=== PATIENT | male | born 1975 | race Hispanic/Latino ===

== ENCOUNTER 2016-10-29 06:03 | Emergency (ER) | payer OTHER ==
[~2016-10-29] VITALS: Ht 142.2 cm; Wt 67.4 kg
--- NOTE | 2016-10-29 06:40 | NUR ---
Pt gives verbal permission to call his boss Selina at [phone] to give information or to get a ride a home.
[2016-10-29 06:50] LABS: MEAN CORPUSCULAR HEMOGLOBIN 28.5 PG (26.0-34.0); MEAN CORPUSCULAR HGB CONC 35.4 g/dL (31.0-37.0); MEAN CORPUSCULAR VOLUME 81 FL (80-100); MEAN PLATELET VOLUME 9.1 FL (6.0-9.5); PLATELET COUNT 249 10^3uL (150-450); WHITE BLOOD COUNT 6.66 10^3uL (4.0-11.0)
[2016-10-29 06:59] LABS: ALBUMIN 4.4 g/dL (3.4-5.0); ALKALINE PHOSPHATASE 112 U/L (38-126); ANION GAP 14.8 MEQ/L (3-15); BUN/CREATININE RATIO 16 (10-20); CALCULATED IONIZED CALCIUM 3.7 mg/dL (3.8-4.6)
--- NOTE | 2016-10-29 07:04 | NUR ---
Report given to day shift nurse.
[2016-10-29 07:12] LABS: BAND NEUTROPHILS % 1 % (0-6); EOSINOPHILS % 2 % (0-4); LYMPHOCYTES # 1.1 #; MONOCYTES % 16 % (3-11); RBC MORPH NORMAL (NORMAL); SEGMENTED NEUTROPHILS % 65 % (51-67); TOTAL CELLS COUNTED 100
[2016-10-29 07:36] LABS: BILIRUBIN,URINE Negative (Negative); CLARITY,URINE Clear; COLOR,URINE Yellow; GLUCOSE, URINE (UA) Negative (Negative); LEUKOCYTE ESTERASE ,URINE Negative (Negative); UROBILINOGEN,URINE 0.2 mg/dL (0.2-1.0)
[2016-10-29 07:45] LABS: RBC,URINE 0-2 /HPF; URINE CENTRIFUGED VOLUME 12 mL
--- NOTE | 2016-10-29 07:54 | NUR ---
DR HERMAN IN WITH PT AND OIL DISTRIBUTOR PHONE
[2016-10-29 07:55] LABS: AMPHETAMINE SCREEN, URINE Negative (Negative); CANNABINOID SCREEN, URINE Negative (Negative); METHAMPHETAMINE SCREEN URINE S NEGATIVE (NEGATIVE); OPIATE SCREEN URINE Negative (Negative); PROPOXYPHENE STAT NEGATIVE (NEGATIVE)
--- NOTE | 2016-10-29 07:56 | NUR ---
DR HERMAN USES [employer] TO TALK WITH PT. CL
--- NOTE | 2016-10-29 08:05 | NUR ---
PTS MYESHA LOUISE CALLED AND NOTIFIED OF PTS DISMISSAL. STATES HE WILL BE THERE TO PICK PT UP IN APPROX 30 MINUTES
[2016-10-29 08:13] VITALS: BP 119/84
== END 2016-10-29 08:05 | disposition home or self-care (01) ==
LOC: ED 06:06
DX: B34.9 Viral infection, unspecified (principal); R55 Syncope and collapse
CPT/HCPCS: 36415; 80053; 80307; 80320; 81003; 81015; 84484; 85025; 93005; 96360; 99284; J7030; 93010